=== PATIENT | female | born 1965 | race Caucasian/White ===

== ENCOUNTER → 2016-05-02 | Outpatient (CLI) | payer BC ==
[~2016-05-02] MED LIST: ASPI81TA28 PO; BLAC40CA2 PO; CETI10TA84 PO; DIVA250T4 PO; EPP3/2 IM; FLUT0.15 NAE; IBUP-1451 PO; LISI20TA3 PO; MAGN400T6 PO; MULT-580 PO; OMEG10007 PO; OMEP20CA9 PO; SUMA100T16 PO; VALA500T60 PO
== END | disposition home or self-care (01) ==
LOC: C.PATHSPEC 17:48
PROVIDERS: ATTEND Obstetrics & Gynecology
DX: N92.4 Excessive bleeding in the premenopausal period (principal)

== ENCOUNTER → 2016-05-02 | Outpatient (CLI) | payer BC | END | disposition home or self-care (01) | LOC: C.PAPS 10:02 | PROVIDERS: ATTEND Obstetrics & Gynecology | DX: Z01.419 Encounter for gynecological examination (general) (routine) without abnormal findings (principal) ==

== ENCOUNTER → 2017-01-08 | Outpatient (CLI) | payer BC ==
[~2017-01-08] MED LIST changes: +[UNRECOGNIZED DRUG - OTHER] PO
[2017-01-08 15:39] LABS: HEMATOCRIT 37.7 % (37-47); MEAN CELL VOLUME 89.5 fL (80-100); MEAN CORPUSCULAR HEMOGLOBIN 27.8 pg (25-34); MEAN PLATELET VOLUME 9.4 fL (7.4-10.4); PLATELET COUNT 312 K/uL (130-400); RED BLOOD COUNT 4.21 M/uL (4.2-5.4); WHITE BLOOD COUNT 5.96 K/uL (4.8-10.8)
[2017-01-08 16:05] LABS: PREG INTERNAL NEGATIVE QC NEG CLEAR BACKGROUND; PREG INTERNAL POSITIVE QC POS CONTROL LINE
== END | disposition home or self-care (01) ==
LOC: C.CPL 15:07
PROVIDERS: ATTEND Obstetrics & Gynecology
DX: Z01.818 Encounter for other preprocedural examination (principal)

== ENCOUNTER → 2017-01-16 | Day surgery (SDC) | payer BC ==
[2017-01-09 11:38] VITALS: Ht 154.9 cm; Wt 72.3 kg
[~2017-01-16] VITALS: Ht 154.9 cm; Wt 72.3 kg
[~2017-01-16] MED LIST changes: +ATROPINE SULFATE 0.1 MG/ML 5ML SYR IV PRN; -BLAC40CA2 PO; +DEXAMETHASONE SOD INJ 4 MG/ML VIAL ONE; -DIVA250T4 PO; +EpHEDrine SULFATE INJ 50 MG/ML AMP IV PRN; +FENTANYL CITRATE INJ 50 MCG/1 ML 2 ML VIAL IV PRN; +FENTANYL CITRATE INJ 50 MCG/1 ML 2 ML VIAL ONE; -IBUP-1451 PO; +IBUPROFEN 200 MG TAB ONE; +IBUPROFEN 600 MG TAB PO PRN; +KETOROLAC TROMETHAMINE 30 MG/ML VIAL IV. PRN; +KETOROLAC TROMETHAMINE 30 MG/ML VIAL ONE; +LACTATED RINGER'S 1000ML 1,000 ML IV SCH; +LIDOCAINE HCL 2% 2 ML VIAL (20MG/ML) ONE; -MAGN400T6 PO; +METOCLOPRAMIDE HCL INJ 5 MG/ML 2 ML VIAL IV PRN; +MIDAZOLAM HCL 1 MG/ML 2ML VIAL ONE; -MULT-580 PO; -OMEG10007 PO; +ONDANSETRON INJ 2 MG/ML 2 ML VIAL IV PRN; +ONDANSETRON INJ 2 MG/ML 2 ML VIAL ONE; +OXYCODONE/ACETAMINOPHEN 5-325 TAB PO PRN; +PROPOFOL IV EMULSION 10 MG/ML 20 ML VIAL IV ONE; +SODIUM CHLORIDE 0.9% 1000ML 1,000 ML IV SCH; -SUMA100T16 PO
--- NOTE | 2017-01-16 06:49 | History & Physical Bridge - [place] ---
H&P Re-Evaluation Bridge Note: I have examined the patient, reviewed the History & Physical and in the interval since the performance of the History & Physical I have noted the following changes of clinical significance: No changes noted
--- NOTE | 2017-01-16 06:51 | Discharge Instructions-SurgCtr ---
Discharge Instructions Date of Service Jan 16, 2017. Visit Reason for Visit: Menorrhagia, Perimenopausal Menorragia Discharge Discharge Diagnosis / Problem: Menorrhagia Discharge Goals Goal(s): Specific goals Activity Recommendations Activity Limitations: per Instructions/Follow-up section Anesthesia . Post Anesthesia Instructions: If you have had General Anesthesia or IV Sedation: * Do not drive today. * Resume driving when surgeon permits. * Do not make important decisions or sign legal documents today. * Call surgeon for: 1. Temperature elevations greater than 101 degrees F. 2. Uncontrollable pain. 3. Excessive bleeding. 4. Persistent nausea and vomiting. 5. Medication intolerance (nausea, vomiting or rash). * For nausea and vomiting use only clear liquids such as: tea, soda, bouillon until nausea subsides, then gradually increase diet as tolerated. * If you have any concerns or questions, call your surgeon's office. If physician is unavailable and it is an emergency, call 911 or go to the nearest emergency room. . Instructions / Follow-Up Instructions / Follow-Up ACTIVITY RECOMMENDATIONS: * Avoid tampons, douching, hot tubs, pools, and intercourse until bleeding has stopped. * May shower as usual. * No strenuous activity for 24-48 hours. After 24-48 hours, you may do anything you feel like doing (driving and sports are okay). SPECIAL CARE INSTRUCTIONS: Special Diet: * Mild nausea may occur in the immediate post-operative period. * Take clear liquids such as tea, cola or bouillon until all nausea has subsided; you may then resume your normal diet. Special Care: * Light bleeding and vaginal spotting can last from a few days to 3-4 weeks. Call your doctor if bleeding becomes heavier than the heaviest part of your period. * Check your temperature twice a day for one week. If it goes above 100.4 degrees Fahrenheit (38.0 Celsius), notify your doctor. * Call your doctor's office for an appointment for 6 weeks after your surgery. FOLLOW-UP VISIT: Call your doctor's office for an appointment for 6 weeks after your surgery. Diet Recommendations Home Diet: resume previous diet Pending Studies Studies pending at discharge: no Medical Emergencies . Who to Call and When: Medical Emergencies: If at any time you feel your situation is an emergency, please call 911 immediately. . Non-Emergent Contact Non-Emergency issues call your: Primary Care Provider . . "Provider Documentation" section prepared by Marisa Swann. .
--- NOTE | 2017-01-16 07:41 | [facility] Post Operative Brief Note ---
Immediate Operative Summary Operative Date Jan 16, 2017. Pre-Operative Diagnosis Menorrhagia Post-Operative Diagnosis same Procedure(s) Performed Dilatation And Curettage, Hysteroscopy, Endometrial Ablation with Novasure Surgeon Dr. Selma Swann It Systems Manager Surgeon(s) 0 Estimated Blood Loss 5cc Findings cavity with thickened endometrium, ostia seen bilaterally. Cervix 4cm, Cavity 6cm, Width 4.5cm, burn time 61sec. Specimens A. Endometrial Curettings Complication(s) None Disposition Recovery Room / PACU
--- NOTE | 2017-01-16 07:57 | OPERATIVE REPORT ---
DATE OF OPERATION: 01/16/2017 PREOPERATIVE DIAGNOSIS: Menorrhagia. POSTOPERATIVE DIAGNOSIS: Menorrhagia. PROCEDURE: D&C, hysteroscopy, endometrial ablation with NovaSure. SURGEON: Marisa Swann MD. IT DATA ARCHITECT: None. ESTIMATED BLOOD LOSS: 5 mL FINDINGS: Cavity with thickened endometrium ostia seen bilaterally, cervix 4 cm, cavity 6 cm with 4.5 cm. Burn time of 61 seconds. SPECIMENS: Endometrial curettings. COMPLICATIONS: None. DISPOSITION: Stable to the recovery room. DESCRIPTION OF PROCEDURE: Yajaira is a 51-year-old female who is frustrated with ongoing menorrhagia. She has had workup and she is not believed to have any uterine pathology. She is simply looking at this point to be done with her menstrual cycles. Options were discussed with her and of these she felt the best fit for her was endometrial ablation. She was therefore brought to the operating room, placed on the table in the lithotomy position, prepped and draped in standard sterile fashion and a hard time-out was taken prior to proceeding. The bladder was emptied of urine via straight catheterization. Claudio and weighted specula were introduced. The anterior lip of the cervix was grasped with a single-tooth tenaculum. The uterus sounded to 10 cm and was noted to be anteverted. The hysteroscope was introduced to the fundus. The cavity was seen to have a thickened slightly polypoid appearing endometrium throughout without any distinct mass. The ostia were seen bilaterally. The scope was then withdrawn and a sharp curettage was carried out on all lofton of the uterus, retrieving significant endometrial curettings. These were sent for pathology. The scope was reintroduced and the cavity was seen to be well curetted. Measurements were taken and then the NovaSure was adjusted to the aforementioned treatment length of 6 cm. It was then deployed to a treatment width of 4.5 cm and the cavity test was performed and was passed. The machine was then activated for a burn time of 61 seconds after which the NovaSure was withdrawn and deployed outside the body to make sure that all pieces had been retrieved which indeed they had been. The hysteroscope was then reintroduced and final photographs were taken showing an excellent burn throughout the entire endometrial cavity. All instruments were then removed from the patient. The procedure was brought to completion and the patient was transferred in stable condition to the recovery room. I attest to the content of the Intraoperative Record and any orders documented therein. Any exception s are noted below.
[2017-01-16 08:37] VITALS: TEMP 37
--- NOTE | 2017-01-16 08:39 | Anesthesia Progress Nt - [facility] ---
Anesthesia Post Op Note Date & Time Jan 16, 2017 at 08:38 Vital Signs Pain Intensity: 3 Vital Signs Past 12 Hours Date Time Temp Pulse Resp B/P (MAP) Pulse Ox O2 Delivery O2 Flow Rate FiO2 01/16/17 08:29 86 16 99 01/16/17 08:29 86 16 01/16/17 08:26 36.8 86 20 136/91 96 Room Air 01/16/17 08:26 136/91 01/16/17 08:24 85 11 01/16/17 08:24 84 11 98 01/16/17 08:21 133/95 01/16/17 08:19 85 16 98 01/16/17 08:19 85 16 01/16/17 08:16 132/92 01/16/17 08:14 84 13 99 01/16/17 08:14 84 13 01/16/17 08:11 141/94 01/16/17 08:09 86 26 01/16/17 08:09 87 26 97 01/16/17 08:06 144/95 01/16/17 08:05 139/94 01/16/17 08:04 93 15 98 01/16/17 08:04 92 15 01/16/17 08:01 148/94 01/16/17 07:59 89 17 01/16/17 07:59 89 17 99 01/16/17 07:56 138/98 01/16/17 07:54 96 17 98 01/16/17 07:54 96 17 01/16/17 07:51 141/91 01/16/17 07:49 97 17 01/16/17 07:49 96 17 100 01/16/17 07:46 137/104 01/16/17 07:44 99 18 100 01/16/17 07:44 100 18 01/16/17 07:41 139/102 01/16/17 07:39 104 01/16/17 07:39 104 151/101 100 01/16/17 07:39 36.4 96 16 151/101 100 Mask 6 01/16/17 06:29 36.8 97 18 127/88 (101) 95 Room Air Notes Mental Status: alert / awake / arousable, participated in evaluation Pt Amnestic to Procedure: Yes Nausea / Vomiting: adequately controlled Pain: adequately controlled Airway Patency, RR, SpO2: stable & adequate BP & HR: stable & adequate Hydration State: stable & adequate Anesthetic Complications: no major complications apparent
[2017-01-16 09:08] VITALS: BP 132/86; PULSE 82; O2SAT 98
== END | disposition home or self-care (01) ==
LOC: X.SURG 06:15
PROVIDERS: ATTEND Obstetrics & Gynecology
DX: N92.0 Excessive and frequent menstruation with regular cycle (principal); I10 Essential (primary) hypertension; J45.909 Unspecified asthma, uncomplicated; K21.9 Gastro-esophageal reflux disease without esophagitis; E78.5 Hyperlipidemia, unspecified; Z87.891 Personal history of nicotine dependence; Z86.73 Personal history of transient ischemic attack (TIA), and cerebral infarction without residual deficits; Z68.30 Body mass index [BMI] 30.0-30.9, adult; Z79.82 Long term (current) use of aspirin